=== PATIENT | female | born 1990 | race Caucasian/White ===

== ENCOUNTER → 2021-02-13 | Outpatient (CLI) | payer BC ==
--- NOTE | 2021-02-13 11:30 | REP ---
INDICATION: LT LEG S/P ABLASION ? DVT. COMPARISON: None TECHNIQUE: Multiple ultrasonographic images of the deep venous structures of the left thigh were obtained from the level of the common femoral vein to the popliteal vein in the longitudinal and transverse scan planes along with Doppler interrogation and color flow Doppler imaging. FINDINGS: There is no abnormal echogenic material seen within any of the visualized deep venous structures that would suggest acute thrombosis. Coaptation is unremarkable throughout. Doppler interrogation shows an expected response to respiratory variability and augmentation. The color flow Doppler images show what appears to be a normal vascular pattern throughout. IMPRESSION: There is no ultrasonographic evidence of deep venous thrombosis involving any of the visualized deep venous structures of the left thigh as described above. Accredited by the [employer] in Vascular Peripheral Ultrasound. <Electronically signed by Mario Patel > 02/13/21 1123
== END ==
LOC: M RAD 11:00
PROVIDERS: ATTEND Surgery
DX: R22.42 Localized swelling, mass and lump, left lower limb (principal)